=== PATIENT | male | born 1985 | race Two or more races ===

== ENCOUNTER 2024-07-21 10:59 | Outpatient (AMB) | payer MEDICAID, SELFPAY ==
[2024-07-21 11:18] VITALS: BP 124/67; PULSE 71; O2SAT 99
--- NOTE | 2024-07-21 11:18 | MHC.OFFVIS ---
Vital Signs 07/21/24 11:18 Weight 164 lb BP 124/67 Blood Pressure Location Lt brachial Pulse 71 Pulse Source Pulse Oximeter Pulse Oximetry (%) 99 Oxygen Delivery Method Room Air Intake Visit Reasons: Vertebrogenic low back pain Allergies No Known Allergies Allergy (Verified 07/21/24 11:21) Medication List - Last Reconciled 07/21/24 by Kaila Duncan, [employer] gabapentin mg PO TID meloxicam 15 mg PO DAILY HPI Comments Details: Jordon is very pleasant 38 years old gentleman who presents in my office with complains on lower back pain with minimal radiation to the left lower extremity to the level of the knee but not below that level. He reports that it started many years ago he is referred here by Dr. Casper from [facility] to have BV and RFA. She reports difficulty with prolonged sitting. She reports sitting more than 30 minutes greatly aggravate his pain. Flexing forward and flexing backwards aggravate his pain equally however he reports that forward aggravate slightly less his pain. Physical activity makes his pain worse. Because of his pain he can not sleep normally. He can do activities of daily living. He can care of himself. He can function normally he is currently unemployed. Weather changes in movements aggravate his pain. Physical activity greatly aggravate his pain. In terms of tissue damage he distress knees pain is jumping, flushing, shooting, stabbing, lancinating, tugging, pulling, wrenching, tiring exhausting. He had physical therapy 2 months ago he had 8 sessions and the he continues home exercise program however unfortunately this is not helping his pain. He had an MRI of the lumbar spine report of this MRI is available for me today and dictation is as below. His past medical history significant for arthritis is and anemia he denies any surgery in the past, he admits smoking cigarettes admits moderate drinking of alcohol drinks coffee and caffeinated beverages and he use cannabis for recreation. He received nerve blocks in the past however with no success. We administered today Oswestry low back pain disability questionnaire and his disability scale is 26 which justifies severe disability. Review of Systems Const Reports no additional complaints ENT Reports Normal hearing present Card Reports no additional complaints Resp Reports no additional complaints GI Reports no additional complaints Reports no additional complaints Musc Reports as per HPI Neuro Reports no additional complaints, Reports Normal hearing present, Denies Abnormal speech present and Denies Sensory deficit (Neuro) Physical Exam Vital Signs: Last Vital Signs Pulse 71 07/21/24 11:18 BP 124/67 07/21/24 11:18 Pulse Ox 99 07/21/24 11:18 Oxygen Delivery Method Room Air 07/21/24 11:18 Const General: no acute distress Orientation/consciousness: patient oriented x3 Eyes General: appearance normal, both eyes and all related structures Pupils: Equal, round and reactive pupils present EOM: EOMs intact bilaterally Neck Neck: Yes full ROM Chest Chest palpation & inspection: normal inspection of the chest Resp Effort & Inspection: normal respiratory effort, able to speak in complete sentences, normal respiratory pattern, no audible wheezes and no cough Cardio Jugular venous distension: no JVD GI Inspection: Yes normal to inspection Back/Spine/Pelvis Other: Severe tenderness on palpation in paraspinal spinal region lumbar spine tenderness on percussion in bilateral paraspinal regions of the lumbar and sacral spine. On inspection patient exhibits restless while sitting and during the appointment today he had to stand several times to alleviate his pain. Neuro General: patient oriented x3 and gait normal Cranial nerves: Yes CN's II-XII intact bilaterally, Yes Equal, round and reactive pupils present, Yes Normal hearing present and Yes Ability to bilaterally elevate shoulders present Speech: No Abnormal speech present Gait exam (Neuro): Normal gait present Motor exam (neuro): 5/5 motor strength present throughout Sensory Exam: No Sensory deficit (Neuro) Extrem General: No pedal edema Psych Speech and movement: Normal speech and movement present Affect: normal affect Attitude: cooperative Thought process: Normal thought process present Thought content: Normal thought content present Insight: Good insight present (Psych) Judgement: Good judgement present (Psych) Results Reviewed Results Reviewed: MRI lumbar spine 11/20/2023. Numbering: Study assumes 5 efk-dvc-[id number] lumbar type vertebral bodies. Alignment vertebral marrow and discs: Minimal retrolisthesis of L5 on S1. Alignment is otherwise normal. Vertebral body heights are preserved. There is disc desiccation at L5-S1 with mild loss of intervertebral disc height. Subtle Modic type 1 changes in the posterior margin of the endplates at this level. Otherwise the intervertebral discs are maintained and there is no significant marrow signal abnormality. Conus: The conus is normal in signal and contour with normal level of termination at the inferior endplate of L1. Paraspinal tissues: The paraspinal soft tissues are unremarkable. Detox by level: L1-L2 no significant canal stenosis or neural foraminal narrowing. L2-L3 subtle left-sided facet arthropathy with subchondral marrow signal changes. No significant canal stenosis or neural foraminal narrowing. L3-L4: Subtle bilateral facet arthropathy. No significant canal stenosis or neural foraminal narrowing. L4-5: Mild facet arthropathy no significant canal stenosis or neural foraminal narrowing. L5-S1 minimal disc bulge and facet arthropathy. No significant canal stenosis. Minimal left and mild right neural foraminal narrowing. Impression mild degenerative changes in lumbar spine as above with no definitive evidence of nerve root impingement. 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 I will schedule him for BVN RFA intercept, I will continue to follow-up with his pain level postoperatively especially for that pain radiating down to the left lower extremity. Coding Level of Care Code New Pt Level 3 (92763) Diagnoses Vertebrogenic low back pain M54.51 Chronic pain syndrome G89.4 Spondylosis of lumbar region without myelopathy or radiculopathy M47.816
== END 2024-07-21 11:27 | disposition home or self-care (01) ==
PROVIDERS: PCP Physician Assistant; Visit Provider Anesthesiology
DX: M54.51 Vertebrogenic low back pain (principal); G89.4 Chronic pain syndrome; M47.816 Spondylosis without myelopathy or radiculopathy, lumbar region
CPT/HCPCS: 99203

== ENCOUNTER → 2024-07-21 10:59 | Outpatient (BNVA) | payer MEDICAID, SELFPAY | PROVIDERS: PCP Physician Assistant; Visit Provider Anesthesiology | DX: M54.51 Vertebrogenic low back pain (principal); M47.816 Spondylosis without myelopathy or radiculopathy, lumbar region; G89.4 Chronic pain syndrome | CPT/HCPCS: 99202 ==

== ENCOUNTER 2024-10-15 09:23 | Day surgery (SDC) | payer MEDICAID, SELFPAY ==
--- NOTE | 2024-09-09 12:07 | P.CONAN_ITS ---
Documented by User: Anjana Timmons NP 09/28/24 12:15 HPI - Anesthesia Eval Consult details Narrative: 38yo M for L5 and S1 Basivertebral Nerve Ablation (Intracept RFA), 10/15/24 [facility] Active Problems Active Problems: All Active Problems Spondylosis of lumbar region without myelopathy or radiculopathy (Acute) Chronic pain syndrome (Acute) Vertebrogenic low back pain (Acute) Past Medical History Medical History Marijuana smoker Smoker Anemia Social History Social History Patient Tobacco Use Status: Current everyday Tobacco user Have you been hit, kicked, punched, or otherwise hurt by someone within the past year? If so, by whom?: No Are you DNR?: No Advance Directives: No Advance Directives Information Provided: Yes Meds Allergies Allergy/AdvReac Type Severity Reaction Status Date / Time No Known Allergies Allergy Verified 07/21/24 11:21 Home Medications ?Medication ?Instructions ?Recorded ?Confirmed ?Last Taken ?Type gabapentin 300 mg capsule 300 mg PO TID 07/21/24 10/15/24 10/14/24 History Assessment and Plan Assessment Anesthesia Assessment: Chart Reviewed Documented by User: Amira Sloan MD 10/15/24 10:28 [facility] Past Medical History Medical History Marijuana smoker Smoker Anemia Surgical History History of Problems with Anesthesia: No Social History Social History Patient Tobacco Use Status: Current everyday Tobacco user Have you been hit, kicked, punched, or otherwise hurt by someone within the past year? If so, by whom?: No Are you DNR?: No Advance Directives: No Advance Directives Information Provided: Yes Meds Allergies Allergy/AdvReac Type Severity Reaction Status Date / Time No Known Allergies Allergy Verified 07/21/24 11:21 Home Medications ?Medication ?Instructions ?Recorded ?Confirmed ?Last Taken ?Type gabapentin 300 mg capsule 300 mg PO TID 07/21/24 10/15/24 10/14/24 History Exam Airway Mallampati Class: II (missing top central incisor) TM Dist: >3cm Neck ROM: Full Partial: Upper Loose/Missing/Broken Teeth: Yes and Upper Heart: RRR Lungs: CTA Assessment and Plan Assessment Anesthesia Assessment: Anesthesia Plan Discussed Final Anesthetic Review History of Problems with Anesthesia: No NPO: Yes ASA Class: II Final Preanesthetic Review: Meds/Allgs Chart Reviewed, Consent Obtained/Reviewed and Anes Risks/Benef Reviewed Patient Risk: Low Procedure Risk: Low Anesthetic Plan Anesthetic Plan: GA Disposition: Standard PACU
[2024-10-15] VITALS (8 sets, daily range): BP systolic 107–132; BP diastolic 56–85; PULSE 58–70; RESP 16–18; TEMP 36.1–36.9; O2SAT 97–99; BMI 24.5
--- NOTE | ~2024-10-15 | FL_ITS ---
EXAMINATION: FL GUIDANCE ONLY HISTORY: L5 S1 INTRACEPT COMPARISON: None available. TECHNIQUE: Fluoroscopy time: 1 minute, 33 seconds. Cumulative Dose: 43.943 mGy. DAP: 17.357 mGym2 Images: 6. FINDINGS: Images demonstrate probes within the L5 and S1 vertebral bodies. FL/FL guidance in OR IMPRESSION: Fluoroscopy during procedure. Please see procedure report for additional information. Electronically signed by: José Luis Mar MD 10/15/2024 01:24 PM EDT
[2024-10-15] MEDS: Lactated Ringers 1,000 ML 100 ML IVCONT (10:05)
--- NOTE | 2024-10-15 10:14 | PC.NURSE ---
pt resting comfortably denies c/p or sob now speaking in full sentences resp easy and reg ls clear no facial griamcing noted pwd awaiting anesthesia to assess patient pt aware
--- NOTE | 2024-10-15 10:22 | PC.NURSE ---
anesthesia at bedside pt sts no sob right sided c/p comes and go pwd denies c/p at this time ls clear nad okay to proceed reproducible
[2024-10-15] MEDS: dexAMETHasone sod phosphate 4 MG/ML VIAL IVPUSH (10:29)
--- NOTE | 2024-10-15 11:04 | MHC.SHP ---
Pre-Procedural Eval Section A - 24 Hr Update-Section A only Date of Service: 10/15/24 The patient is an INPATIENT: No The patient has been examined within 24 hours of the surgical procedure. The History & Physical has been completed within 30 days and I have reviewed it.: No Section B - Complete if H&P > 30 days Chief Complaint: Vertebrogenic low back pain Details of Present Illness: vertebrogenic pain syndrome Relevant Family History (Specify if Yes): No Relevant Social History: None Present Medications: None Medical History: No relevant PMH History of Previous Operations: No relevant previous surgery Allergies: Allergies Allergy/AdvReac Type Severity Reaction Status Date / Time No Known Allergies Allergy Verified 07/21/24 11:21 Review of Systems Sugical H&P ROS: Negative: Constitution, Cardiovascular, Respiratory, Neurological, Psychiatric, Hem-Onc, Allergic/Immunologic, Gastrointestinal, Genitourinary, Musculoskeletal, Integumentary, Endocrine and Eyes/Ears/Nose/Throat Exam Surgical H&P Exam: Normal: HEENT, Normal: Heart, Normal: Lungs, Normal: Extremities, Normal: Abdomen, Normal: Skin and Normal: Neurological Plan Diagnosis/Plan: Unchanged I have reviewed the history and physical and performed a pertinent physical examination on my patient. No changes have occurred unless specified. We are planning to perform L5 and S1 basivertebral nerve radiofrequency ablation. Time Spent With Patient Time: Total time managing care of this patient today ____ minutes.
[2024-10-15] MEDS: ceFAZolin Sodium/Dextrose,Iso 2 GM/50 ML PIGGYBACK IV (11:50)
--- NOTE | 2024-10-15 13:02 | P.BOP_ITS ---
Brief Operative Note Date of Service: 10/15/24 Pre-op diagnosis: Vertebra genic pain syndrome Post-op diagnosis: same Procedure: L5 and S1 basivertebral nerve radiofrequency ablation intracept. Implants: None Surgeon: Tevin William MD Anesthesia: GETA Was an Pulmonary Function Technologist used for this Procedure?: No Estimated blood loss (mL): 8 Pathology: none sent Condition: stable Disposition: PACU
--- NOTE | 2024-10-15 13:07 | P.OP_ITS ---
Operative Note Operative Note Date of Service: 10/15/24 Narrative: Basivertebral nerve (BVN) ablation? Intracept Procedure S1, L5 . Informed consent was thoroughly explained to the patient were risks and benefits were explained to the patient as bleeding, infection, peripheral nerve damage, spinal cord damage, headache. The patient came to the operating room and was positioned supine on the stretcher with ASA monitors applied. General anesthesia was induced with endotracheal intubation and after that patient was transferred prone on the operating table, all pressure points were protected Procedure Time Out: Patient ID confirmed, correct procedure to be performed, correct site and/or side for procedure , need for antibiotic administration, need for DVT prophylaxis, risk of fire.? The patient received cefazolin 2 g intravenously 30 minutes before onset of the procedure as well as dexamethasone 4 mg intravenously push. The entire back was sterilely prepped with ChloraPrep twice and draped with sterile self adhesive utility towels and covered with full body drape.? Two sterilely draped C-arms were positioned in fixed anterior posterior and lateral positions alongside the patient's torso.? The C-arm was rotated to a Stanley view to square off the superior endplate at S1. The C-arm was then rotated to the right approximately 15-20 degrees for an approach to the right S1 pedicle. The skin entry point was identified and infiltrated with mixture of 2% lidocaine with ropivacaine 0.5% 1 to 1 4 cc. A 22-gauge 5-inch spinal needle was used to anesthetize the track to the? pedicle and periosteum and confirm the introducer cannula trajectory. A small horizontal 5 mm skin incision was made with 11 scalpel blade. The introducer cannula with bevel tip was then introduced through the skin, subcutaneous tissue and paraspinal muscle until bony contact was made. The position was checked in the AP and lateral plane. Using a mallet, the trocar was then advanced through the pedicle to the posterior aspect of the vertebral body using a combination of AP and lateral views to ensure appropriate traversing of the pedicle and no breaching of the pedicle medially. Once the trocar was in the posterior aspect of the S1 vertebral body, the trocar was removed from the cannula and the curved cannula assembly with the nitinol J-stylet was inserted. The spin wheel was rotated counterclockwise permitting excursion of the J-stylet. The curved cannula assembly was then advanced using a mallet in 1-2 mm increments. The J- stylet was observed to traverse the vertebral body in the midline in both the AP and lateral views. The J-stylet was removed and replaced with the straight stylet to reach the BVN target. Target was reached when the tip of the stylet was noted to be approximately 50% anterior of the posterior wall of the S1 in the lateral view, 40% inferior from the superior endplate and it crossed the midline of the S1 spinous process in the AP view. The stylet was then removed. The bipolar radiofrequency (RF) probe was ?inserted into the introducer cannula. The spin wheel was rotated clockwise to retract the PEEK sleeve to expose the proximal electrode on the radiofrequency probe. The BVN was then ablated using [employer]?s standard RFG algorithm for 15 minutes. While the ablation was occurring at below level the C-arm was moved to visualize the target at the superolateral aspect of the L5 vertebral body. The C-arm was rotated to square off the superior endplate at L5 and rotated left to obtain an oblique view. The superolateral ?left L5 pedicle was identified, and the skin entry point identified and infiltrated with mixture of 2% lidocaine with ropivacaine 0.5% one to one using a 25- gauge 1-1/2 inch needle. A 22-gauge 5- inch spinal needle was used to anesthetize the track to the pedicle and periosteum and confirm the introducer cannula trajectory. A skin incision was made with 11 scalpel blade 5 mm. The introducer cannula with bevel tip was then introduced through the skin, subcutaneous tissue and paraspinal muscle until bony contact was made. The position was checked in the AP and lateral plane. Using a mallet, the trocar was then advanced through the pedicle to the posterior aspect of the vertebral body using a combination of AP and lateral views to ensure appropriate traversing of the pedicle and no breaching of the pedicle medially or inferiorly. Once the trocar was in the posterior aspect of the L5 vertebral body, the trocar was removed from the cannula and the curved cannula assembly with the nitinol J-stylet was inserted. The spin wheel was rotated counterclockwise permitting excursion of the J-stylet. The curved cannula assembly was then advanced using a mallet in 1-2 mm increments. The J- stylet was observed to traverse the vertebral body in the AP and lateral views. Target was reached when the tip of the stylet was less than 30% anterior of the posterior wall of the L5 in the lateral view (midway between the superior and inferior endplates) and it crossed the midline of the L5 spinous process in the AP view. The stylet was then removed. The bipolar radiofrequency (RF) probe was removed from the previous vertebral body, the tip cleaned and was inserted into the introducer cannula in its ablation position. The spin wheel was rotated clockwise to retract the PEEK sleeve to expose the proximal electrode on the radiofrequency probe. The BVN was then ablated using [employer]?s standard RFG algorithm for 7 minutes. Upon completion of the procedure the instruments were removed from the patient, 0 silk sutures were used to close to incisions. Sterile dressing using 2 by 2 was applied. The patient was awaken, extubated, taken outside of the operating room to recovery room where he recovered uneventfully
[2024-10-15] MEDS: oxyCODONE HCl Immed Release 5 MG TABLET PO (13:30)
[2024-10-15] MEDS: HYDROmorphone HCl 0.5 MG/0.5 ML SYRINGE 0.25 MG IVPUSH ×2 (13:30→13:41)
== END 2024-10-15 14:39 | disposition home or self-care (01) ==
PROVIDERS: Visit Provider Anesthesiology
PROC: (CPT 64628; principal; 2024-10-15 12:00)
DX: M54.51 Vertebrogenic low back pain (principal); G89.4 Chronic pain syndrome; M47.816 Spondylosis without myelopathy or radiculopathy, lumbar region; M25.562 Pain in left knee; M25.561 Pain in right knee; M19.90 Unspecified osteoarthritis, unspecified site; D64.9 Anemia, unspecified; Z79.899 Other long term (current) drug therapy; Z56.0 Unemployment, unspecified; F17.210 Nicotine dependence, cigarettes, uncomplicated
CPT/HCPCS: 64628; C1889; J0690; J1100; J1171; J2003; J2405; J2704; J2795; J3010

== ENCOUNTER → 2024-10-15 09:23 | Outpatient (BNV) | payer MEDICAID, SELFPAY | PROVIDERS: Visit Provider Anesthesiology | DX: M54.51 Vertebrogenic low back pain (principal) | CPT/HCPCS: 64628 ==

== ENCOUNTER 2024-10-25 09:51 | Outpatient (AMB) | payer MEDICAID, SELFPAY ==
[2024-10-25 09:56] VITALS: BP 134/70; PULSE 91; O2SAT 97; BMI 24.5
--- NOTE | 2024-10-25 09:56 | MHC.OFFVIS ---
Vital Signs 10/25/24 09:56 Height 5 ft 9 in Weight 166 lb BMI 24.5 BP 134/70 Blood Pressure Location Lt brachial Position Sitting Pulse 91 Pulse Oximetry (%) 97 Oxygen Delivery Method Room Air Intake Visit Reasons: S/p L5 and S1 BVN (Intracept) 09/10/24 Intake Note: Pain today 12/11 Instrument Tester Required: No Accompanied by: Other Relationship Allergies No Known Allergies Allergy (Verified 10/25/24 09:57) HPI Comments Details: Jordon is back in my office after intercept L5-S1 procedure. He reports that on the day 2. after the surgery he started to feel pain radiating to the lower extremity. He complained on that pain before the procedure. It is unlikely RFA injury because there is no neurological deficits on physical exam see as below, besides the onset of the pain on day 2 after the procedure points out to other than iatrogenic injury pain generators. The patient was explained today that the results of the procedure usually demonstrable 25 to 30 days after the procedure. I recommended him to schedule appointment with me in 1 month. Dressings were removed, the wounds were washed with ChloraPrep and sutures were severed with scalpel and removed. Sterile dry dressing applied. Hygiene limitations discussed. Prior: complains on lower back pain with minimal radiation to the left lower extremity to the level of the knee but not below that level. He reports that it started many years ago he is referred here by Dr. Casper from [facility] to have BV and RFA. She reports difficulty with prolonged sitting. She reports sitting more than 30 minutes greatly aggravate his pain. Flexing forward and flexing backwards aggravate his pain equally however he reports that forward aggravate slightly less his pain. Physical activity makes his pain worse. He had physical therapy 2 months ago he had 8 sessions and the he continues home exercise program however unfortunately this is not helping his pain. He had an MRI of the lumbar spine report of this MRI is available for me today and dictation is as below. [facility] Medical History Marijuana smoker Smoker Anemia Social History Patient Tobacco Use Status: Current everyday Tobacco user Review of Systems Const All systems reviewed & are unremarkable except as noted in HPI and below ENT Reports Normal hearing present Neuro Reports Normal hearing present, Denies Abnormal speech present and Denies Sensory deficit (Neuro) Physical Exam Vital Signs: Last Vital Signs Pulse 91 10/25/24 09:56 BP 134/70 10/25/24 09:56 Pulse Ox 97 10/25/24 09:56 Oxygen Delivery Method Room Air 10/25/24 09:56 BMI result Body Mass Index 24.5 Const General: no acute distress Orientation/consciousness: patient oriented x3 Eyes General: appearance normal, both eyes and all related structures Pupils: Equal, round and reactive pupils present EOM: EOMs intact bilaterally Neck Neck: Yes full ROM Chest Chest palpation & inspection: normal inspection of the chest Resp Effort & Inspection: normal respiratory effort, able to speak in complete sentences, normal respiratory pattern, no audible wheezes and no cough Cardio Jugular venous distension: no JVD GI Inspection: Yes normal to inspection Back/Spine/Pelvis Other: Severe tenderness on palpation in paraspinal spinal region lumbar spine tenderness on percussion in bilateral paraspinal regions of the lumbar and sacral spine. On inspection patient exhibits restless while sitting and during the appointment today he had to stand several times to alleviate his pain. Neuro General: patient oriented x3 and gait normal Cranial nerves: Yes CN's II-XII intact bilaterally, Yes Equal, round and reactive pupils present, Yes Normal hearing present and Yes Ability to bilaterally elevate shoulders present Speech: No Abnormal speech present Gait exam (Neuro): Normal gait present Motor exam (neuro): 5/5 motor strength present throughout Sensory Exam: No Sensory deficit (Neuro) Extrem General: No pedal edema Psych Speech and movement: Normal speech and movement present Affect: normal affect Attitude: cooperative Thought process: Normal thought process present Thought content: Normal thought content present Insight: Good insight present (Psych) Judgement: Good judgement present (Psych) Assessment & Plan Assessment & Plan (1) Vertebrogenic low back pain: Code(s): M54.51 - Vertebrogenic low back pain Category: Medical (2) Chronic pain syndrome: Code(s): G89.4 - Chronic pain syndrome Category: Medical (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 See discussion as above. Hygiene limitations were discussed with the patient. Next appointment in 1 month. Patient Instructions: I here by testify that I spent 30 minutes in conversation with this patient as well as planning his care and organizing this note. Coding Level of Care Code Est Pt Level 4 (01956) Diagnoses Vertebrogenic low back pain M54.51 Chronic pain syndrome G89.4 Spondylosis of lumbar region without myelopathy or radiculopathy M47.816
== END 2024-10-25 10:32 | disposition home or self-care (01) ==
LOC: HO.PMC 09:51
PROVIDERS: Visit Provider Anesthesiology
DX: M54.51 Vertebrogenic low back pain (principal); G89.4 Chronic pain syndrome; M47.816 Spondylosis without myelopathy or radiculopathy, lumbar region
CPT/HCPCS: 99024

== ENCOUNTER → 2024-10-25 09:51 | Outpatient (BNVA) | payer MEDICAID, SELFPAY | PROVIDERS: Visit Provider Anesthesiology | DX: M54.51 Vertebrogenic low back pain (principal); G89.4 Chronic pain syndrome; M47.816 Spondylosis without myelopathy or radiculopathy, lumbar region; Z98.890 Other specified postprocedural states | CPT/HCPCS: 99212 ==